=== PATIENT | female | born 1985 | race Caucasian/White ===

== ENCOUNTER 2020-01-20 10:13 | Day surgery (SDC) | payer OTHER ==
[~2020-01-20] VITALS: Ht 162.6 cm; Wt 58.0 kg
[2020-01-20] MEDS ORDERED: CHLORHEXIDINE 15 ML UDC MM STA (10:30)
[2020-01-20 10:32] VITALS: BP 138/94
[2020-01-20] MEDS ORDERED: NO MEDS (10:58)
[2020-01-20] MEDS ORDERED: LACTATED RINGERS 1,000 ML IV SCH (11:00)
[2020-01-20] MEDS ORDERED: OXYTOCIN 10 UNITS/ML, 1ML ONE (11:21)
[2020-01-20] MEDS ORDERED: SILVER NITRATE STICK TP ONE (11:21)
[2020-01-20] MEDS ORDERED: MISOPROSTOL 200 MCG TABLET ONE (11:21)
[2020-01-20] MEDS ORDERED: METHYLERGONOVINE 0.2 MG/ML IM ONE (11:22)
[2020-01-20] MEDS ORDERED: MIDAZOLAM 1 MG/ML, 2ML ONE (11:41)
[2020-01-20] MEDS ORDERED: FENTANYL PF 100 MCG/2ML ONE (11:44)
[2020-01-20] MEDS ORDERED: DEXAMETHASONE 4 MG/ML, 1ML ONE (11:44)
[2020-01-20 11:49] LABS: ALANINE AMINOTRANSFERASE 15 U/L (12-78); ALBUMIN 4.4 g/dL (3.4-5.0); ANION GAP 7 mmol/L (5-15); CALCIUM 9.5 mg/dL (8.5-10.1); CHLORIDE 109 mmol/L (98-107)
[2020-01-20 11:52] LABS: BASOPHILS % (AUTO) 0 % (0-1); EOSINOPHILS % (AUTO) 1 % (1-7); LYMPHOCYTES % (AUTO) 23 % (22-44); MEAN CORPUSCULAR HEMOGLOBIN 31.3 pg (27.0-34.8); MEAN CORPUSCULAR HGB CONC 33.9 g/dL (32.4-35.8); MEAN PLATELET VOLUME 11.6 fL (7.4-10.4); MONOCYTES % (AUTO) 8 % (2-9); NEUTROPHILS % (AUTO) 69 % (42-75); PLATELET COUNT 129 x10^3/uL (130-400)
[2020-01-20 11:52] LABS: ALKALINE PHOSPHATASE 70 U/L (45-117); BILIRUBIN,TOTAL 0.9 mg/dL (0.2-1.0); CREATININE 0.69 mg/dL (0.55-1.02); TOTAL PROTEIN 8.2 g/dL (6.4-8.2)
[2020-01-20 11:53] LABS: MICROSCOPIC INDICATED
[2020-01-20] MEDS ORDERED: DIAZEPAM 5 MG TABLET PO ONE (12:00)
[2020-01-20] MEDS ORDERED: ACETAMINOPHEN 500 MG TABLET PO ONE (12:00)
[2020-01-20] MEDS ORDERED: ONDANSETRON 2MG/ML, 2ML ONE (12:16)
[2020-01-20] MEDS ORDERED: PROPOFOL 10 MG/ML, 20ML ONE (12:16)
[2020-01-20 12:25] LABS: MD NO
[2020-01-20] MEDS ORDERED: DIPHENHYDRAMINE 50 MG/ML, 1ML IVPush PRN (13:00)
[2020-01-20] MEDS ORDERED: hydrALAzine 20 MG/ML, 1ML IV PRN (13:00)
[2020-01-20] MEDS ORDERED: HYDROmorphone 1 MG/ML, 1ML INJ IVPush PRN (13:00)
[2020-01-20] MEDS ORDERED: MIDAZOLAM 1 MG/ML, 2ML IV PRN (13:00)
[2020-01-20] MEDS ORDERED: OXYcodone 5 MG/5 ML ORAL.SOL UDC PO PRN (13:00)
[2020-01-20] MEDS ORDERED: FENTANYL PF 100 MCG/2ML IV PRN (13:00)
[2020-01-20] MEDS ORDERED: LABETALOL 5MG/ML, 20ML IV PRN (13:00)
[2020-01-20] MEDS ORDERED: MEPERIDINE/PF 25MG/0.5ML IVPush PRN (13:00)
[2020-01-20] MEDS ORDERED: ALBUTEROL SULFATE 2.5 MG/3 ML NPPB PRN (13:00)
[2020-01-20] MEDS ORDERED: PROMETHAZINE 12.5 MG SUPP PR PRN (13:00)
[2020-01-20] MEDS ORDERED: EPHEDRINE 50 MG/ML, 1ML IVPush PRN (13:00)
[2020-01-20] MEDS ORDERED: PROMETHAZINE 25 MG/ML, 1ML IVPush PRN (13:00)
[2020-01-20] MEDS ORDERED: DIAZEPAM 5 MG/ML, 2ML IVPush PRN (13:00)
[2020-01-20] MEDS ORDERED: ONDANSETRON 2MG/ML, 2ML IVPush PRN (13:00)
[2020-01-20] MEDS ORDERED: DOXYCYCLINE 100MG TABLET PO ONE (13:30)
== END 2020-01-20 14:50 | disposition home or self-care (01) ==
LOC: OUT 10:13
PROVIDERS: ATTEND Student in an Organized Health Care Education/Training Program
DX: O02.1 Missed abortion (principal); Z20.828 Contact with and (suspected) exposure to other viral communicable diseases; Z79.899 Other long term (current) drug therapy; Z98.890 Other specified postprocedural states
CPT/HCPCS: 36415; 59820; 80053; 81001; 85025; 86850; 86900; 87635; 88305; J1100; J2250; J2790; J3010; J7120; J2405; J2704; J2210; J2590

== ENCOUNTER 2020-02-16 15:02 | Emergency (ER) | payer OTHER ==
[~2020-02-16] VITALS: Ht 162.6 cm; Wt 50.0 kg
[~2020-02-16 15:02] MED LIST: NO MEDS
[2020-02-16 15:11] VITALS: BP 142/83
== END 2020-02-16 17:26 | disposition home or self-care (01) ==
LOC: ED 17:00
DX: M79.662 Pain in left lower leg (principal)
CPT/HCPCS: 99284